=== PATIENT | female | born 1995 | race African-American/Black ===

== ENCOUNTER 2017-06-06 10:53 | Emergency (ER) | payer BC ==
[~2017-06-06] VITALS: Ht 165.1 cm; Wt 75.0 kg
[2017-06-06 10:59] VITALS: TEMP 37; Ht 165.1 cm; Wt 75.0 kg
--- NOTE | 2017-06-06 11:14 | EMERGENCY ROOM VISIT NOTE ---
History Report prepared by tSacy: Efrain Sterling Under the Supervision of: Dr. Angel Luis Schreiber M.D. First contact with patient: 11:02 Chief Complaint: DIZZY Stated Complaint: DIZZY,FAINT,HOT,SWEATY Nursing Triage Summary: triage note: pt reports while completing physical fitness test "i passed out on my last lap. " pt reports feeling dizzy and thirsty and drained. History of Present Illness The patient is a 21 year old female who presents to the Emergency Room with complaints of a sudden syncopal episode occurring prior to arrival. She rates her discomfort as a 6/10 in severity. She reports that she was completing a physical fitness test outside and was running 2 miles for time earlier this morning. 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 She reports that during her final two laps she felt moderately hot and felt as if she was "swallowing sand". The patient states that she completed her last lap when she experienced a sudden syncopal episode. She reports that she was experiencing dizziness, shortness of breath, diaphoresis, nausea, and dehydration. The patient states that she believe she experienced these symptoms due to a lack of fluid intake today and the hot weather outside. She reports that her symptoms are currently resolved. The patient states that she has a history of asthma, but denies that her symptoms felt like an exacerbation of her asthma symptoms. The patient denies chest pain, symptoms before running, hematochezia, melena, , and an abnormal menstrual period. Source of History: patient Onset: prior to arrival Position: other (global) Symptom Intensity: 6/10 Timing: other (sudden) Associated Symptoms: + diaphoresis, + SOB, + nausea, No chest pain, No melena, No hematochezia Review of Systems See HPI for pertinent positives & negatives. A total of 10 systems reviewed and were otherwise negative. Past Medical & Surgical The patient does not report any pertinent medical history. Family History Patient reports no known family medical history. Social History Smoking Status: Never Smoker Marital Status: single Housing Status: lives with family Occupation Status: employed Current/Historical Medications No Active Prescriptions or Reported Meds Allergies Coded Allergies: Acetaminophen (Unverified Allergy, Severe, NAUSEA, 06/06/17) Morphine (Unverified Allergy, Severe, HIVES AND VOMITING, 06/06/17) Oxycodone (Unverified Allergy, Severe, NAUSEA, 06/06/17) Penicillins (Unverified Allergy, Severe, HIVES AND VOMITING, 06/06/17) [place] (Unverified Allergy, Severe, HIVES, 06/06/17) Physical Exam Vital Signs Date Time Temp Pulse Resp B/P (MAP) Pulse Ox O2 Delivery O2 Flow Rate FiO2 06/06/17 14:12 79 18 112/68 99 06/06/17 13:41 79 18 111/68 98 Room Air 06/06/17 13:25 96 06/06/17 12:00 92 98 102/52 06/06/17 11:28 101 06/06/17 10:59 37.0 106 18 108/63 96 Room Air Physical Exam General: Well developed well nourished non ill appearing young female. in no acute distress, breathing comfortably on room air. Normal speech. Mildly diaphoretic. HEENT: Normal cephalic atraumatic. Pupils are equal round and reactive to light. Extraocular movements are intact. Oropharynx is pink with moist mucous membranes. No swelling of the mouth lips or tongue. Neck: Supple with a midline trachea. No meningeal signs or stiffness, no JVD or bruits. No Stridor. Chest: Clear to auscultation bilaterally. No wheezes or rhonchi. No increased work of breathing. Heart: regular rate and rhythm. Abdomen: Soft nontender, nondistended without rebound guarding or rigidity. Extremities: No cyanosis clubbing or edema. No calf tenderness or assymetry Spine/Back. Non tender to palpation. No CVA tenderness Skin: Good turgor without rashes. Neurologic exam: Cranial nerves two through 12 are intact. Motor and sensation are intact and symmetrical throughout. Medical Decision & Procedures Laboratory Results 06/06/17 11:20 Red Blood Count 4.80, Mean Corpuscular Volume 86.5, Mean Corpuscular Hemoglobin 27.7, Mean Corpuscular Hemoglobin Concent 32.0, Mean Platelet Volume 9.7, Neutrophils (%) (Auto) 76.3, Lymphocytes (%) (Auto) 16.1, Monocytes (%) (Auto) 6.1, Eosinophils (%) (Auto) 0.8, Basophils (%) (Auto) 0.5, Neutrophils # (Auto) 7.27, Lymphocytes # (Auto) 1.53, Monocytes # (Auto) 0.58, Eosinophils # (Auto) 0.08, Basophils # (Auto) 0.05 06/06/17 11:20 Test 06/06/17 11:05 06/06/17 11:20 Urine Color YELLOW Urine Appearance CLEAR (CLEAR) Urine pH 5.0 (4.5-7.5) Urine Specific [place] 1.022 (1.000-1.030) Urine Protein 2+ (NEG) Urine Glucose (UA) NEG (NEG) Urine Ketones TRACE (NEG) Urine Occult Blood 1+ (NEG) Urine Nitrite NEG (NEG) Urine Bilirubin NEG (NEG) Urine Urobilinogen NEG (NEG) Urine Leukocyte Esterase TRACE (NEG) Urine WBC (Auto) 5-10 /hpf (0-5) Urine RBC (Auto) 0-4 /hpf (0-4) Urine Hyaline Casts (Auto) 5-10 /lpf (0-5) Urine Epithelial Cells (Auto) >30 /lpf (0-5) Urine Bacteria (Auto) NEG (NEG) Urine Renal Epithelial Cells /lpf (0-5) White Blood Count 9.53 K/uL (4.8-10.8) Red Blood Count 4.80 M/uL (4.2-5.4) Hemoglobin 13.3 g/dL (12.0-16.0) Hematocrit 41.5 % (37-47) Mean Corpuscular Volume 86.5 fL (80-100) Mean Corpuscular Hemoglobin 27.7 pg (25-34) Mean Corpuscular Hemoglobin Concent 32.0 g/dl (32-36) Platelet Count 310 K/uL (130-400) Mean Platelet Volume 9.7 fL (7.4-10.4) Neutrophils (%) (Auto) 76.3 % Lymphocytes (%) (Auto) 16.1 % Monocytes (%) (Auto) 6.1 % Eosinophils (%) (Auto) 0.8 % Basophils (%) (Auto) 0.5 % Neutrophils # (Auto) 7.27 K/uL (1.4-6.5) Lymphocytes # (Auto) 1.53 K/uL (1.2-3.4) Monocytes # (Auto) 0.58 K/uL (0.11-0.59) Eosinophils # (Auto) 0.08 K/uL (0-0.5) Basophils # (Auto) 0.05 K/uL (0-0.2) RDW Standard Deviation 47.3 fL (36.4-46.3) RDW Coefficient of Variation 14.7 % (11.5-14.5) Immature Granulocyte % (Auto) 0.2 % Immature Granulocyte # (Auto) 0.02 K/uL (0.00-0.02) Anion Gap 13.0 mmol/L (3-11) Est Creatinine Clear Calc Drug Dose 80.6 ml/min Estimated GFR () 82.0 Estimated GFR (Non- 70.7 BUN/Creatinine Ratio 14.2 (10-20) Calcium Level 8.9 mg/dl (8.5-10.1) Total Bilirubin 0.3 mg/dl (0.2-1) Direct Bilirubin 0.1 mg/dl (0-0.2) Aspartate Amino Transf (AST/SGOT) 18 U/L (15-37) Alanine Aminotransferase (ALT/SGPT) 27 U/L (12-78) Alkaline Phosphatase 85 U/L (45-117) Total Creatine Kinase 158 U/L (26-192) Creatine Kinase MB 0.6 ng/ml (0.5-3.6) Creatine Kinase MB Ratio 0.4 (0-3.0) Troponin I < 0.015 ng/ml (0-0.045) Total Protein 7.3 gm/dl (6.4-8.2) Albumin 3.7 gm/dl (3.4-5.0) Lipase 139 U/L (73-393) Human Chorionic Gonadotropin, Qual NEG (NEG) Laboratory studies as stated above per my review. Medications Administered Medications (Trade) Dose Ordered Sig/Jie Route Start Time Stop Time Status Last Admin Dose Admin Sodium Chloride 1,000 ml @ 999 mls/hr Q1H1M STAT IV 06/06/17 11:52 06/06/17 12:52 DC 06/06/17 11:52 999 MLS/HR Sodium Chloride 1,000 ml @ 200 mls/hr Q5H ONCE IV 06/06/17 11:52 06/06/17 14:32 DC 06/06/17 11:52 200 MLS/HR ECG Indication: syncope Rate (beats per minute): 99 Rhythm: normal sinus Findings: no acute ischemic change, no ectopy Comparison ECG Date: no prior available ED Course 1103: Past medical records reviewed. The patient was evaluated in room A10, and a complete history and physical examination were performed. 1152: Sodium Chloride 1000 ml @ 200 mls/hr IV, Sodium Chloride 1000 ml @ 999 mls /hr IV. 1200: I reevaluated the patient and she is resting comfortably. 1241: Upon reevaluation, the patient is resting comfortably. I am waiting for another read of her troponin. 1340: Upon reevaluation, the patient is doing well. I discussed the results and treatment plan with her. She verbalized agreement of the treatment plan. The patient was discharged home. Medical Decision Differentials include, but are not limited to; electrolyte or metabolic abnormality, coronary disease, pulmonary embolism, arrhythmia. Medication Reconciliation: I attest that I have personally reviewed the patient' s current medication list. Blood pressure Screening: Patient was found to have normal blood pressure on screening and does not require follow-up. This patient comes in after feeling ill and passing out after running. She was out in the heat and it's very hot today she had run over 2 miles in [email or web address] the last lap or so she felt very dry and started getting nauseated and felt sick. After she ran ,she says she collapsed and passed out she had no chest pain or shortness of breath. She was diaphoretic. IV access was established was given 1 L normal saline bolus and 200 mL an hour of IV normal saline. She felt great while she was here and was eating and drinking. She had no chest pain or shortness of breath. She has no murmurs on exam or anything to suggest HOCM. She has no acute electrolyte or metabolic abdomen she is not . I think this was more of a dehydration heat exhaustion picture I told her to rest and drink plenty fluids and avoid overexerting herself follow-up with her regular doctor. She tells me she had echo done 4 years ago and was told that she had no structural problems of her heart. She should return if any new problems or concerns. Impression Primary Impression: Vasovagal syncope Additional Impression: Dehydration Scribe Attestation The scribe's documentation has been prepared under my direction and personally reviewed by me in its entirety. I confirm that the note above accurately reflects all work, treatment, procedures, and medical decision making performed by me. Departure Information Dispostion Home / Self-Care Prescriptions No Active Prescriptions or Reported Meds Forms HOME CARE DOCUMENTATION FORM, IMPORTANT VISIT INFORMATION Patient Instructions My [facility] Additional Instructions Rest. Drink plenty of fluids. Return if: Worsening of symptoms, shortness of breath, chest pain, fever chills , any new problems concerns When you are ensure that you drink plenty of water and stay out of the sun Problem Qualifiers
[2017-06-06] MEDS ORDERED: SODIUM CHLORIDE 0.9% 1000ML 1,000 ML IV ONE (11:52)
[2017-06-06] MEDS ORDERED: SODIUM CHLORIDE 0.9% 1000ML 1,000 ML IV STA (11:52)
[2017-06-06 12:07] LABS: BASO % 0.5 %; BASO ABS # 0.05 K/uL (0-0.2); COMPLETE YES; EOS % 0.8 %; HEMATOCRIT 41.5 % (37-47); IG% 0.2 %; LYMPH % 16.1 %; LYMPH ABS # 1.53 K/uL (1.2-3.4); MEAN CELL VOLUME 86.5 fL (80-100); MEAN CORPUSCULAR HEMOGLOBIN 27.7 pg (25-34); MEAN PLATELET VOLUME 9.7 fL (7.4-10.4); MONO % 6.1 %; NEUT % 76.3 %; PLATELET COUNT 310 K/uL (130-400); WHITE BLOOD COUNT 9.53 K/uL (4.8-10.8)
[2017-06-06 12:12] LABS: URINE APPEARANCE CLEAR (CLEAR); URINE BILIRUBIN NEG (NEG); URINE COLOR YELLOW; URINE EPITHELIAL CELL AUTO >30 /lpf (0-5); URINE NITRITE NEG (NEG); URINE SPECIFIC GRAVITY 1.022 (1.000-1.030); UROBILINOGEN NEG (NEG)
[2017-06-06 12:13] LABS: PREG INTERNAL POSITIVE QC POS CONTROL LINE
[2017-06-06 12:13] LABS: MANUAL MICROSCOPIC REQUIRED? NO; REVIEW REQ? YES
[2017-06-06 12:14] LABS: PREG INTERNAL NEGATIVE QC NEG CLEAR BACKGROUND
[2017-06-06 12:26] LABS: BUN/CREATININE RATIO 14.2 (10-20); CALCIUM 8.9 mg/dl (8.5-10.1); CREATININE 1.1 mg/dl (0.60-1.20)
[2017-06-06 12:31] LABS: CKMB/CK RATIO 0.4 (0-3.0)
[2017-06-06 14:12] VITALS: BP 112/68; PULSE 79; O2SAT 99
== END 2017-06-06 14:14 | disposition home or self-care (01) ==
LOC: C.EDB 10:53 → C.EDA 14:14
DX: R55 Syncope and collapse (principal); E86.0 Dehydration; J45.909 Unspecified asthma, uncomplicated